=== PATIENT | female | born 1970 | race Caucasian/White ===

== ENCOUNTER 2016-12-09 12:37 | Emergency (ER) ==
--- NOTE | 2016-12-09 14:54 | Diag Imaging Result Document ---
PROCEDURE NAME: ABDOMEN FLAT/UPRIGHT - 12/09/2016 FLAT AND UPRIGHT ABDOMEN: FINDINGS: The bowel gas pattern is unremarkable. There is no evidence of organomegaly or mass. IMPRESSION: No evidence of acute disease.
[2016-12-09 15:29] LABS: URINE MICRO REVIEW NEEDED? NO; URINE SOURCE CLEAN CATCH
[2016-12-09 15:39] LABS: BILIRUBIN URINE SMALL (NEGATIVE); BLOOD URINE MODERATE (NEGATIVE); COLOR YELLOW; GLUCOSE URINE NEGATIVE (NEGATIVE); LEUKOCYTES URINE NEGATIVE (NEGATIVE); NITRITE URINE NEGATIVE (NEGATIVE); PROTEIN URINE 50 mg/dL (NEGATIVE); TURBIDITY URINE CLEAR (CLEAR); UR EPITHELIAL CELLS <10 /HPF (<10); URINE BACTERIA 2+ /HPF; URINE CULTURE NEEDED? YES; URINE WBC <10 /HPF (<10); UROBILINOGEN URINE NORMAL (NORMAL)
[2016-12-09] MEDS ORDERED: NS 1,000 ML IV ONE (16:05)
[2016-12-09] MEDS ORDERED: ZOFRAN IV ONE (16:05)
--- NOTE | 2016-12-09 16:10 | PROVIDER DOCUMENTATION ---
HPI-Abdominal Pain/GI Problem <Michel Horne - Last Filed: 12/09/16 16:05> - General Source: patient - History of Present Illness-ABD Abdominal Pain Onset Location: reports: generalized abdomen Pain Radiation: reports: no radiation Quality of Pain: reports: aching Severity in ED: reports: mild Onset/Duration: reports: this evening Timing: reports: still present Similar Symptoms Previously?: No Recently seen or treated by another doctor?: No <Susy Dash - Last Filed: 12/09/16 18:27> - General Chief Complaint: Abdominal Pain Stated Complaint: RT SIDE PAIN,DIARRHEA,NAUSEA Time Seen by Provider: 12/09/16 15:49 Allergies/Adverse Reactions: Patient Allergies Allergy/AdvReac Type Severity Reaction Status Date / Time egg Allergy Mild RASH Verified 12/09/16 16:07 erythromycin base Allergy Mild RASH Verified 12/09/16 16:07 [Erythromycin Base] influenza virus vaccine, Allergy Unknown RASH Verified 12/09/16 16:07 specific povidone-iodine Allergy RASH Verified 12/09/16 16:07 [From Betadine] soap * [From Betadine] Allergy RASH Verified 12/09/16 16:07 - History of Present Illness-ABD Nature of Presenting Problems: 46 y/o WF with Hx of ischemic colitis presents complaining of N/V/D along with RUQ abdominal pain that begin early this morning after she ate a chicken biscuit. She states this is the first time this has happened, and she describes her pain as "sharp." She further states she has vomited once and had a normal bowel movement shortly followed by a watery diarrhea a few hours ago. She denies any fever, BERGER, CP, or SOB. She states the only major surgeries she has had in the past are 3 C-sections and a tubal ligation. She is a former smoker, but denies EtOH or illicit drug usage. (Michel Horne) Review of Systems - Adult - REVIEW OF SYSTEMS - ADULT Constitutional: denies: chills, fever Gastrointestinal: reports: abdominal pain. denies: nausea Neurological: denies: dizziness/vertigo, headache/migraines <Susy Dash - Last Filed: 12/09/16 18:27> Past History - Adult - PAST MEDICAL HISTORY-ADULT Major Childhood Illnesses: reports: denies history Cardiovascular: reports: other (cyst on heart) Respiratory: reports: asthma, bronchitis Gastrointestinal: reports: colitis, GERD Obstetrical/Gynecological: reports: denies history Genitourinary: reports: denies history Musculoskeletal: reports: denies history Neurological: reports: denies history, headaches/migraines Endocrine/Immune: reports: denies history Other Conditions: reports: denies history - PRIOR SURGERIES/PROCEDURES Surgical/Procedure History: reports: hysterectomy, BTL, - PRIOR HOSPITALIZATIONS Prior Hospitalizations: reports: none - IMMUNIZATION STATUS Childhood Immunizations: See Nurse Assessment Flu Vaccine: See Nurse Assessment - FAMILY HISTORY Family History: reviewed, not pertinent <Michel Horne - Last Filed: 12/09/16 16:05> - PAST MEDICAL HISTORY-ADULT Review of Records: reports: Old Records Reviewed, Nursing Assessment Review, Medications Reviewed - IMMUNIZATION STATUS Childhood Immunizations: See Nurse Assessment Flu Vaccine: See Nurse Assessment - SOCIAL HISTORY Smoking: cigarettes, less than 1 pack/day Provider spent 3-5 mins advising pt. on dangers of tobacco.: Discussed manners to quit use, and f/u contacts for add'l counseling. <Susy Dash - Last Filed: 12/09/16 18:27> Physical Exam-General - PHYSICAL EXAM-ADULT Initial Vital Signs Reviewed: Yes - CONSTITUTIONAL General Appearance: alert, no apparent distress - EYES Eyes: PERRL/EOMI, pink conjunctivae, fundi clear, no AV nicking - HEAD, EARS, NOSE, MOUTH & THROAT HENMT: normocephalic/atraumatic, moist mucous membranes, normal ENT inspection - NECK Neck: non-tender, full range of motion, supple - RESPIRATORY Respiratory: chest non-tender, lungs clear, normal breath sounds - CARDIOVASCULAR Cardiovascular: normal peripheral pulses, regular rate, rhythm - GASTROINTESTINAL (ABDOMEN) Abdominal Exam: normal bowel sounds, tenderness - LYMPHATIC Lymphatic: no adenopathy - MUSCULOSKELETAL Back Exam: normal inspection - SKIN Integumentary: normal color, normal turgor, warm/dry - PSYCHIATRIC Psych/Mental Status: normal mood/affect, normal thought content, normal thought process, oriented x 3 <Susy Dash - Last Filed: 12/09/16 18:27> Progress <Michel Horne - Last Filed: 12/09/16 16:05> <Susy Dash - Last Filed: 12/09/16 18:27> - PLAN OF CARE/RESULTS Progress/Plan/Lab Results: plan of care: labs, imaging,medication Laboratory Tests 12/09/16 12/09/16 12/09/16 15:17 15:42 15:42 WBC 11.44 H RBC 4.79 Hgb 14.9 Hct 45.6 MCV 95.2 MCH 31.1 H MCHC 32.7 L RDW Std Deviation 12.6 Plt Count 368 MPV 9.9 Immature Gran % (Auto) 0.2 Neut % (Auto) 82.3 H Lymph % (Auto) 11.2 L Barren % (Auto) 5.2 Eos % (Auto) 1.0 Baso % (Auto) 0.1 Immature Gran # (Auto) 0.02 Neut # (Auto) 9.41 H Lymph # (Auto) 1.28 Barren # (Auto) 0.60 H Eos # (Auto) 0.12 Baso # (Auto) 0.01 Sodium 139 Potassium 4.2 Chloride 101 Carbon Dioxide 26 Anion Gap 12 BUN 23 H Creatinine 0.6 Estimated GFR/1.73 m2 > 60 BUN/Creatinine Ratio 38 Glucose 91 Calculated Osmolality 281 Calcium 9.2 Total Bilirubin 0.80 AST 24 ALT 29 Alkaline Phosphatase 70 Total Protein 7.9 Albumin 4.5 Globulin 3.4 Albumin/Globulin Ratio 1.3 Amylase 56 Lipase 23 Urine Source CLEAN CATCH Urine Color YELLOW Urine Turbidity CLEAR Urine pH 6.0 Ur Specific [place] 1.040 Urine Protein 50 A Ur Glucose (Stick) NEGATIVE Ur Ketones (Stick) 20 A Urine Blood MODERATE A Urine Nitrite NEGATIVE Urine Bilirubin SMALL A Urobilinogen Dipstick NORMAL Urine Leukocytes NEGATIVE Urine WBC (Auto) <10 Urine RBC (Auto) 10-20 A U Epithel Cells (Auto) <10 Urine Bacteria (Auto) 2+ Orders Category Date Time Status Saline Loc NOW Care 12/09/16 15:49 Active ABDOMEN FLAT/UPRIGHT [RAD] Stat Exams 12/09/16 13:14 Draft RENAL STONE SEARCH [CT] Stat Exams 12/09/16 16:34 Taken AMYLASE [CHEM] Stat Lab 12/09/16 15:42 Completed CBC WITH ELECTRONIC DIFF [HEME] Stat Lab 12/09/16 15:42 Completed COMPREHENSIVE METABOLIC PANEL [CHEM] Stat Lab 12/09/16 15:42 Completed LIPASE [CHEM] Stat Lab 12/09/16 15:42 Completed URINALYSIS W/POSS RFLX CULT [URINALYSIS] Stat Lab 12/09/16 15:17 Completed URINE CULTURE [RM] Routine Lab 12/09/16 15:56 Received 0.9% Sodium Chloride Inj [Ns] 1,000 ml Med 12/09/16 16:05 Discontinued IV 999 mls/hr Ondansetron [Zofran] Med 12/09/16 16:05 Discontinued 4 mg IV NOW ONE Vital Signs - 24 hr 12/09/16 12/09/16 12:45 16:01 Temperature 97.6 F 97.8 F Pulse Rate 85 82 Respiratory 20 18 Rate Blood Pressure 114/84 117/37 O2 Sat by Pulse 99 99 Oximetry (Susy Dash) Departure <Michel Horne - Last Filed: 12/09/16 16:05> - Departure Time of Disposition Order: 18:24 Certified Medical Emergency: Emergent <Susy Dash - Last Filed: 12/09/16 18:27> - Departure DIAGNOSIS: Kidney stone, Colitis Disposition: HOME 01 Condition: Stable Additional Instructions: ED Follow Up Instructions: You have been treated by a care provider in the Emergency Department. These instructions are being provided to you so you can have an understanding of how to care for yourself upon discharge. Upon discharge from the Emergency Department, you are responsible for making arrangements for follow-up care by a physician of your choice. Take all prescribed medications as directed. Return to the Emergency Department immediately for any new or worsening symptoms. You may call the Physician Referral phone number at [phone] to obtain a list of Physicians who are taking new patients. Referrals: Gaurav Gutierrez MD [Primary Care Provider] - Attestation - Scribe Verification/Attestation Scribe:: Susy Dash Acting as Scribe for:: Michel Horne Scribe documention review:: This chart was documented by a scribe and accurately reflects the service the provider performed and the decisions made by the provider. <Susy Dash - Last Filed: 12/09/16 18:27> Physician Attestation
[2016-12-09 16:19] LABS: MANUAL DIFF NEEDED? NO
[2016-12-09 16:27] LABS: BASO% 0.1 % (0.0-0.8); EOS# 0.12 X1000 (0.0-0.7); HEMATOCRIT 45.6 % (37.0-47.0); HEMOGLOBIN 14.9 g/dL (12.0-16.0); IMM GRAN# 0.02 X1000 (0.0-0.04); IMM GRAN% 0.2 % (0.0-0.5); LYMPH# 1.28 X1000 (1.2-3.4); LYMPH% 11.2 % (20.5-51.1); MCH 31.1 PG (27-31); MCHC 32.7 g/dL (33-37); MCV 95.2 FL (81-99); MONO% 5.2 % (1.7-9.3); MPV 9.9 FL (7.4-10.4); NEUT% 82.3 % (42.2-75.2); PLT 368 X1000 (130-400); RBC 4.79 XMIL (4.2-5.4)
[2016-12-09 16:39] LABS: AGAP 12; ALBUMIN 4.5 g/dL (3.5-5.0); ALKALINE PHOSPHATASE 70 U/L (32-104); AMYLASE 56 U/L (20-200); BUN 23 mg/dL (8-22); CALCIUM 9.2 mg/dL (8.8-10.2); CHLORIDE 101 mmol/L (98-107); COSMO 281; GOT 24 U/L (10-30); GPT 29 U/L (10-36); LIPASE 23 U/L (13-60); POTASSIUM 4.2 mmol/L (3.5-5.1); SODIUM 139 mmol/L (136-145); TCO2 26 mmol/L (25-35); TOTAL PROTEIN 7.9 g/dL (6.3-8.3)
[2016-12-09 18:54] VITALS: BP 123/69
[2016-12-09] MEDS ORDERED: ZOFRAN ODT PO ONE (19:05)
--- NOTE | 2016-12-10 07:41 | Diag Imaging Result Document ---
PROCEDURE NAME: RENAL STONE SEARCH - 12/09/2016 CT RENAL STONE SEARCH WITHOUT CONTRAST: A dose-reduction protocol was used. COMPARISON: 06/27/2015. FINDINGS: There is slight fullness of the right upper collecting system. There is no substantial hydronephrosis or perinephric edema identified. There is no renal stone identified. There is an apparent small cyst at the upper right kidney similar to the previous exam. There is no evidence of bowel obstruction. There is some retained fluid in distal small bowel and colon. This may relate to mild enterocolitis. The appendix is unremarkable. There is no free air. There are no calcified gallstones seen. There is stable mild para-aortic and mesenteric adenopathy. There are some degenerative changes of L5-S1 facets. IMPRESSION: 1. Slight fullness of right upper collecting system. No gross hydronephrosis. No renal stone identified. 2. Retained fluid in distal small bowel and colon, which may relate to mild enterocolitis. No evidence of appendicitis. 3. Stable mild retroperitoneal and mesenteric adenopathy. The on-call radiologist provided preliminary results at 5:55 p.m. on 12/09/2016.
== END 2016-12-09 19:28 | disposition home or self-care (01) ==
LOC: ED 12:37
DX: K52.9 Noninfective gastroenteritis and colitis, unspecified (principal); N20.0 Calculus of kidney; R10.9 Unspecified abdominal pain; R51 Headache; F17.210 Nicotine dependence, cigarettes, uncomplicated; Z71.6 Tobacco abuse counseling
CPT/HCPCS: 36415; 74020; 74176; 80053; 81001; 82150; 83690; 85025; 87088; 96374; J2405; J7030